=== PATIENT | female | born 1980 | race Caucasian/White ===

== ENCOUNTER → 2018-03-08 15:39 | Outpatient (CLI) | payer OTHER, SELFPAY ==
--- NOTE | 2018-03-08 15:43 | CT_ITS ---
STUDY: CT MAXILLOFACIAL SINUSES REASON FOR EXAM: Female, 37 years old. Sinusitis RADIATION DOSAGE (If Supplied By Facility): CTDIvol = ( 33.06 ) mGy, DLP = ( 887.57 ) mGycm TECHNIQUE: The patient was scanned in a multi detector CT scanner. High resolution axial imaging was performed without the administration of intravenous contrast material. Sagittal and coronal images were reconstructed. Individualized dose optimization techniques were used for this CT. COMPARISON: None. FINDINGS: : NASAL SEPTUM: Slightly bowed to the right. No spur CRIBRIFORM PLATE AND BOB WILL: The fovea ethmoidalis, lateral lamella and lamina cribrosa are normal. The anterior ethmoidal notch is normal with no supraorbital pneumatization. The olfactory fossa is symmetric with a Keros type II. No skull base dehiscence LAMINA PAPYRACEA: No remote orbital fracture and no orbital prolapse into the ethmoidal sinus . BONY KRISHNA: No dehiscence, demineralization or thickness TURBINATES: Normal thickness and no paradoxical orientation. No rosangela bullosa . No turbinectomy OSTIOMEATAL UNITS: Patent with no ethmoidectomy, maxillary antrostomy, uncinectomy or turbinoplasty SPHENOETHMOIDAL RECESS: Patent FRONTAL SINUSES: Well developed and pneumatized with no abnormal soft tissue attenuations in them ETHMOID AIR CELLS: Aggar Nasi air cells are noted. No Henry air cells. Both the anterior and posterior ethmoidal air cells are clear of abnormal soft tissue attenuations MAXILLARY SINUSES: Retention cyst in the right maxillary sinus. Mucoperiosteal thickening in the left maxillary sinus. SPHENOID SINUSES: Normal with conchal, presellar or sellar type pneumatization. No dehiscence into carotid canal and no optic nerve dehiscence within the sphenoid sinus. No Onodi air cells ORBITS: Negative SKULL BASE/CRANIOVERTEBRAL JUNCTION/UPPER CERVICAL SPINE.: Normal CT/Sinus/Facial Bone IMPRESSION: Negative examination with no maxillo-infundibular, nasofrontal, ostiomeatal unit or sphenoethmoidal pattern of obstructive disease. There is also no evidence of sinonasal polyposis. A retention cyst in the right maxillary sinus. Mild mucoperiosteal thickening of the left maxillary sinus.. . Electronically Signed: Tucker Saldivar MD at 7:21 EST Tel , Service support ,
== END ==
PROVIDERS: Family Provider Internal Medicine; PCP Internal Medicine; Referring Provider Otolaryngology; Visit Provider Otolaryngology
DX: J32.0 Chronic maxillary sinusitis (principal)
CPT/HCPCS: 70486

== ENCOUNTER → 2021-02-07 06:53 | Outpatient (CLI) | payer OTHER, SELFPAY ==
[2021-02-07 07:34] LABS: Absolute Lymphocyte Count 2.54 X10^3/uL (0.83-4.51); Absolute Neutrophil Count 4.5 X10^3/uL (2.0-7.7); Basophil# 0.05 X10^3/uL; Basophil% 0.6 % (0-1); Eosinophil# 0.19 X10^3/uL; Eosinophils% 2.4 % (0-5); Hematocrit 44.3 % (37-47); Hemoglobin 14.6 g/dL (12.0-15.0); Lymphocyte # 2.54 X10^3/ul (0.83-4.51); Lymphocyte % 32.2 % (19-41); Mean Corpuscular Hgb 30.7 pg (27.0-32.0); Mean Corpuscular Volume 93.1 fL (81-99); Mean Platelet Vol. 10.3 fl (6.2-12.0); Monocyte# 0.55 X10^3/uL; NRBC Flagged by Analyzer 0 % (0-5); Neutrophil # 4.53 X10^3/uL (2.7-7.7); Neutrophil % 57.3 % (47-70); POSITIVE COUNT YES; RBC Distribution Width CV 12.2 % (11.6-14.6); RBC Distribution Width SD 42.3 fl (35.1-43.9); Red Blood Count 4.76 M/mm3 (4.2-5.4); White Blood Count 7.9 K/mm3 (4.4-11.0)
[2021-02-07 07:36] LABS: Differential Indicated SCAN CRITERIA MET
[2021-02-07 08:12] LABS: AST(SGOT) 15 U/L (15-37); Alanine Aminotransfer ALT/SGPT 23 U/L (13-56); Albumin, Serum 3.5 g/dL (3.2-5.0); Alkaline Phosphatase 88 U/L (45-117); Anion Gap 5 (5-15); BUN 17 mg/dL (7-18); BUN/Creat Ratio 21.4 RATIO (10-20); Bilirubin, Direct 0.09 mg/dL (0.00-0.30); Calcium,Total 8.9 mg/dL (8.5-10.1); Chloride 110 mmol/L (98-107); Cholesterol 251 mg/dL (200); EST Glomerular Filtration Rate 86 mL/min (>60); Est Glom Filt Rate - Afr Amer 104 mL/min (>60); Globulin 3.4 g/dL (2.2-4.2); Glucose 97 mg/dL (74-106); High Density Lipoprotein 57 mg/dL; Potassium 4.6 mmol/L (3.5-5.1); Protein, Total 6.9 g/dL (6.4-8.2); Sodium Level 140 mmol/L (136-145); T4 Free Direct 0.93 ng/dL (0.76-1.46); Thyroid Stim Hormone (TSH) 0.62 uIU/mL (0.358-3.74); Triglycerides 119 mg/dL; Very Low Density Lipoprotein 24 mg/dL (5-40)
[2021-02-07 08:31] LABS: Platelet Count 281 K/mm3 (150-450)
== END ==
DX: R53.83 Other fatigue (principal); Z79.899 Other long term (current) drug therapy
CPT/HCPCS: 36415; 80048; 80061; 80076; 82533; 84439; 84443; 85025